=== PATIENT | female | born 1975 | race Two or more races ===

== ENCOUNTER 2024-04-28 22:40 | Inpatient (IN) | payer OTHER ==
[~2024-04-28] VITALS: Ht 144.8 cm; Wt 72.6 kg
[2024-04-28] MEDS ORDERED: 0.9 % SODIUM CHLORIDE 1,000 ML IV ONE (23:15)
[2024-04-28] MEDS ORDERED: FAMOtidine 10 MG/ML (4ML VIAL) IV ONE (23:15)
[2024-04-28] MEDS ORDERED: MORPHINE SULFATE 4 MG/ML VIAL IV ONE (23:15)
[2024-04-28] MEDS ORDERED: FAMOTIDINE/PF 20 MG/2 ML VIAL ONE (23:18)
[2024-04-29] MEDS ORDERED: METOCLOPRAMIDE HCL 5 MG/5 ML BLIST.PACK PO STA (00:25)
[2024-04-29] MEDS ORDERED: METOCLOPRAMIDE HCL 5 MG/ML VIAL IM STA (00:28)
[2024-04-29] MEDS ORDERED: METOCLOPRAMIDE HCL 5 MG/ML VIAL ONE (00:29)
[2024-04-29 00:37] LABS: HEMATOCRIT 41.5 % (36.0-45.00); HEMOGLOBIN 13.8 g/dL (12.0-15.00); MEAN CELL VOLUME 87.3 fL (80.00-100.00); MEAN CORPUSCULAR HGB CONC 33.2 g/dl (32.0-36.0); PLATELET COUNT 289 K/uL (150-450); RED BLOOD COUNT 4.76 M/uL (4.00-6.00); RED CELL DISTRIBUTION WIDTH 14.8 % (11.5-14.5)
[2024-04-29 00:48] LABS: INR 1.11; PARTIAL THROMBOPLASTIN TIME 27.6 SECONDS (22.0-34.0)
[2024-04-29 00:51] LABS: ALBUMIN 4.1 gm/dL (3.4-5.0); BILIRUBIN TOTAL 0.54 mg/dL (0.3-1.2); CALCIUM 11.5 mg/dL (8.5-10.1); CREATININE SERUM 1.12 mg/dL (0.55-1.02); GFR 52.14; GLOBULINA 5.5 G/DL (2.4-3.5); POTASSIUM 3.77 mEq/L (3.5-5.1); TOTAL PROTEIN 9.6 gm/dL (6.4-8.2)
[2024-04-29] MEDS ORDERED: LIDOCAINE HCL VISCOUS 20MG/ML BLIST 15ML MM ONE (04:38)
[2024-04-29] MEDS ORDERED: MORPHINE SULFATE 4 MG/ML VIAL IV STA (05:07)
[2024-04-29 05:36] LABS: URINE BILIRRUBIN Negative (NEGATIVE); URINE BLOOD Trace; URINE COLOR Yellow; URINE GLUCOSE Negative (NEGATIVE); URINE KETONE 15 (NEGATIVE); URINE LEUKOCYTE Trace; URINE NITRATE Negative; URINE UROBILINOGEN 0.2 E.U./dl
[2024-04-29 05:40] LABS: URINE CAST 1.94 uL (0.0-1.40); URINE EPITHELIAL CELLS 7.5 uL (0.0-38.8); URINE WBC 141.5 uL (0.0-23.2)
[2024-04-29 05:41] LABS: URINE BACTERIA > 9821.5 uL (0.0-1933); URINE PROTEIN 100 (NEGATIVE)
[2024-04-29 05:42] LABS: URINE APPEARANCE SL CLOUDY
[2024-04-29] MEDS ORDERED: MORPHINE SULFATE 4 MG/ML CARTRIDGE IV ONE (14:30)
[2024-04-29] MEDS ORDERED: METHYLPREDNISOLONE SOD SUCC 125 MG VIAL IV ONE (19:15)
[2024-04-29 20:49] LABS: HEMOGLOBIN 13.2 g/dL (12.0-15.00); MEAN CELL VOLUME 86.6 fL (80.00-100.00); MEAN CORPUSCULAR HEMOGLOBIN 28.6 pg (27.00-32.0); MEAN CORPUSCULAR HGB CONC 33.1 g/dl (32.0-36.0); PLATELET COUNT 303 K/uL (150-450); RED BLOOD COUNT 4.63 M/uL (4.00-6.00); RED CELL DISTRIBUTION WIDTH 14.5 % (11.5-14.5)
[2024-04-29] MEDS ORDERED: METHYLPREDNISOLONE SOD SUCC 125 MG VIAL ONE (21:06)
[2024-04-29 21:16] LABS: ALBUMIN 3.5 gm/dL (3.4-5.0); BILIRUBIN TOTAL 0.47 mg/dL (0.3-1.2); CALCIUM 10.7 mg/dL (8.5-10.1); CREATININE SERUM 0.91 mg/dL (0.55-1.02); GFR 66.26; GLOBULINA 4.3 G/DL (2.4-3.5); POTASSIUM 4.3 mEq/L (3.5-5.1); TOTAL PROTEIN 7.8 gm/dL (6.4-8.2)
[2024-04-29] MEDS ORDERED: PIPERACILLIN/TAZOBACTAM SODIUM 3.375 GM VIAL IV ONE ×2 (21:58→22:00)
[2024-04-29] MEDS ORDERED: METRONIDAZOLE/SODIUM CHLORIDE 100 ML IV SCH (21:59)
[2024-04-30] MEDS ORDERED: METHYLPREDNISOLONE SOD SUCC 40 MG VIAL ONE ×2 (05:37→12:26)
[2024-04-30 08:38] LABS: HEMATOCRIT 36.8 % (36.0-45.00); HEMOGLOBIN 12.1 g/dL (12.0-15.00); MEAN CELL VOLUME 87.3 fL (80.00-100.00); MEAN CORPUSCULAR HEMOGLOBIN 28.8 pg (27.00-32.0); MEAN CORPUSCULAR HGB CONC 32.9 g/dl (32.0-36.0); PLATELET COUNT 272 K/uL (150-450); RED BLOOD COUNT 4.21 M/uL (4.00-6.00); RED CELL DISTRIBUTION WIDTH 14.6 % (11.5-14.5)
[2024-04-30 09:01] LABS: ERYTHROCYTE SEDIMENTATION RATE 85 mm/hr
[2024-04-30 09:11] LABS: ALBUMIN 3.2 gm/dL (3.4-5.0); BILIRUBIN TOTAL 0.44 mg/dL (0.3-1.2); CALCIUM 10.5 mg/dL (8.5-10.1); CREATININE SERUM 0.94 mg/dL (0.55-1.02); GFR 63.83; GLOBULINA 4.6 G/DL (2.4-3.5); POTASSIUM 3.74 mEq/L (3.5-5.1); TOTAL PROTEIN 7.8 gm/dL (6.4-8.2)
[2024-04-30 09:26] LABS: INR 1.17; PARTIAL THROMBOPLASTIN TIME 25.6 SECONDS (22.0-34.0); PROTHROMBIN TIME 12.6 SECONDS (9.0-11.5)
[2024-04-30] MEDS ORDERED: METHYLPREDNISOLONE SOD SUCC 40 MG VIAL IV SCH ×2 (12:53)
[2024-04-30] MEDS ORDERED: DEXTROSE 5 %-0.45 % SOD CHLORD 1,000 ML IV SCH (13:00)
[2024-04-30] MEDS ORDERED: PIPERACILLIN/TAZOBACTAM SODIUM 3.375 GM in DEXTROSE 5 % IN WATER 100 ML IV SCH (14:00)
[2024-04-30] MEDS ORDERED: DIATRIZOATE MEGLUMINE, SODIUM 30 ML BOTTLE PO NR (14:45)
[2024-04-30 15:47] VITALS: BP 157/84; O2SAT 100
[2024-04-30] MEDS ORDERED: FAMOTIDINE/PF 20 MG in 0.9 % SODIUM CHLORIDE 100 ML IV SCH (17:00)
[2024-04-30] MEDS ORDERED: MORPHINE SULFATE 4 MG/ML VIAL IV PRN (17:45)
[2024-04-30 19:14] VITALS: BP 164/78
[2024-05-01 00:47] VITALS: BP 180/76; O2SAT 95
[2024-05-01 04:19] VITALS: BP 172/90; O2SAT 97
[2024-05-01] MEDS ORDERED: MORPHINE SULFATE 4 MG/ML VIAL IV PRN (06:27)
[2024-05-01] MEDS ORDERED: ENALAPRILAT DIHYDRATE 1.25 MG/ML VIAL IV PRN (06:30)
[2024-05-01 08:43] VITALS: BP 163/79
[2024-05-01] MEDS ORDERED: ENOXAPARIN SODIUM 40 MG/0.4 ML SYRINGE SUBCUTANEO SCH (09:00)
[2024-05-01] MEDS ORDERED: MORPHINE SULFATE 4 MG/ML CARTRIDGE IV PRN (10:30)
[2024-05-01 17:07] VITALS: BP 184/87
[2024-05-02 01:04] VITALS: BP 170/76
[2024-05-02 05:40] VITALS: BP 172/64
[2024-05-02 08:42] VITALS: BP 192/82
[2024-05-02] MEDS ORDERED: LOSARTAN POTASSIUM 25 MG TABLET PO SCH (12:00)
[2024-05-02 13:43] LABS: CALCIUM 9.9 mg/dL (8.5-10.1); CHOL HDL RATIO 2.8 (0-5.0); CREATININE SERUM 1.01 mg/dL (0.55-1.02); GFR 58.75; POTASSIUM 3.39 mEq/L (3.5-5.1)
[2024-05-02] MEDS ORDERED: METHYLPREDNISOLONE SOD SUCC 40 MG VIAL IV SCH (17:00)
[2024-05-02] MEDS ORDERED: AA 5 %/CALCIUM/LYTES/DEXT 20 % 2,000 ML CENTRAL SCH (17:00)
[2024-05-02 18:04] VITALS: BP 195/83
[2024-05-02] MEDS ORDERED: PANTOPRAZOLE SODIUM 40 MG/VIAL VIAL IV SCH (22:41)
[2024-05-03 01:39] VITALS: BP 160/75
[2024-05-03 05:34] VITALS: BP 160/73
[2024-05-03 08:43] LABS: CALCIUM 10.2 mg/dL (8.5-10.1); CREATININE SERUM 1.18 mg/dL (0.55-1.02); GFR 49.1; POTASSIUM 4.01 mEq/L (3.5-5.1)
[2024-05-03 08:53] VITALS: BP 192/83
[2024-05-03] MEDS ORDERED: hydrALAZINE HCL 20 MG VIAL IV SCH (14:49)
[2024-05-03 16:57] VITALS: BP 184/89
[2024-05-03 20:52] VITALS: BP 179/85
[2024-05-04] MEDS ORDERED: MORPHINE SULFATE 4 MG/ML CARTRIDGE IV PRN (00:30)
[2024-05-04 02:43] VITALS: BP 155/77; O2SAT 100
[2024-05-04 05:27] VITALS: BP 160/82; O2SAT 97
[2024-05-04 06:29] LABS: HEMATOCRIT 37.2 % (36.0-45.00); HEMOGLOBIN 12.2 g/dL (12.0-15.00); MEAN CELL VOLUME 86.7 fL (80.00-100.00); MEAN CORPUSCULAR HEMOGLOBIN 28.4 pg (27.00-32.0); MEAN CORPUSCULAR HGB CONC 32.8 g/dl (32.0-36.0); PLATELET COUNT 225 K/uL (150-450); RED BLOOD COUNT 4.29 M/uL (4.00-6.00); RED CELL DISTRIBUTION WIDTH 14.8 % (11.5-14.5)
[2024-05-04 07:03] LABS: CALCIUM 9.8 mg/dL (8.5-10.1); CREATININE SERUM 1.09 mg/dL (0.55-1.02); GFR 53.8; POTASSIUM 3.55 mEq/L (3.5-5.1)
[2024-05-04 09:11] VITALS: BP 117/72
[2024-05-04 17:31] LABS: PH,URINE 6.5 (5.0-8.0); URINE APPEARANCE Clear; URINE BILIRRUBIN Negative (NEGATIVE); URINE BLOOD Negative; URINE COLOR Yellow; URINE KETONE Negative (NEGATIVE); URINE LEUKOCYTE Trace; URINE NITRATE Negative; URINE UROBILINOGEN 0.2 E.U./dl
[2024-05-04 17:34] LABS: URINE BACTERIA 108.2 uL (0.0-1933); URINE EPITHELIAL CELLS 57.3 uL (0.0-38.8); URINE RBC 2.7 uL (0.0-20.8); URINE WBC 25.9 uL (0.0-23.2)
[2024-05-04 17:42] LABS: URINE GLUCOSE 100 MG/DL (NEGATIVE); URINE PROTEIN 100 (NEGATIVE)
[2024-05-04 18:28] VITALS: BP 190/80
[2024-05-05 01:13] VITALS: BP 141/80; O2SAT 98
[2024-05-05 09:42] VITALS: BP 160/90
[2024-05-05 17:50] VITALS: BP 154/77
[2024-05-06 00:29] VITALS: BP 168/81
[2024-05-06 04:53] LABS: HEMATOCRIT 39.6 % (36.0-45.00); HEMOGLOBIN 12.6 g/dL (12.0-15.00); MEAN CELL VOLUME 88.6 fL (80.00-100.00); MEAN CORPUSCULAR HEMOGLOBIN 28.3 pg (27.00-32.0); MEAN CORPUSCULAR HGB CONC 31.9 g/dl (32.0-36.0); PLATELET COUNT 214 K/uL (150-450); RED BLOOD COUNT 4.47 M/uL (4.00-6.00); RED CELL DISTRIBUTION WIDTH 15.3 % (11.5-14.5)
[2024-05-06 05:15] LABS: CREATININE SERUM 1.03 mg/dL (0.55-1.02); GFR 57.44; POTASSIUM 4.63 mEq/L (3.5-5.1)
[2024-05-06 09:11] VITALS: BP 154/75
[2024-05-06] MEDS ORDERED: SODIUM CHLORIDE 0.45 % 1,000 ML IV SCH (11:00)
[2024-05-06 16:50] VITALS: BP 142/76; O2SAT 99
[2024-05-07 02:16] VITALS: BP 128/70
[2024-05-07 05:48] VITALS: BP 146/71
[2024-05-07 07:42] LABS: HEMATOCRIT 37.6 % (36.0-45.00); HEMOGLOBIN 12.1 g/dL (12.0-15.00); MEAN CELL VOLUME 88.5 fL (80.00-100.00); MEAN CORPUSCULAR HEMOGLOBIN 28.4 pg (27.00-32.0); MEAN CORPUSCULAR HGB CONC 32.1 g/dl (32.0-36.0); PLATELET COUNT 242 K/uL (150-450); RED BLOOD COUNT 4.25 M/uL (4.00-6.00); RED CELL DISTRIBUTION WIDTH 14.8 % (11.5-14.5)
[2024-05-07 09:15] VITALS: BP 135/75; O2SAT 96
[2024-05-07] MEDS ORDERED: DEXTROSE 5 %-0.45 % SOD CHLORD 1,000 ML IV SCH (09:30)
[2024-05-07 17:50] VITALS: BP 160/83; O2SAT 97
[2024-05-07 21:30] VITALS: BP 160/83; O2SAT 100
[2024-05-08 03:04] VITALS: BP 127/65
[2024-05-08 08:00] VITALS: BP 127/78; O2SAT 97
[2024-05-08] MEDS ORDERED: DIATRIZOATE MEGLUMINE, SODIUM 30 ML BOTTLE PO NR (12:45)
[2024-05-08 17:56] VITALS: BP 137/84; O2SAT 97
[2024-05-08 21:55] VITALS: BP 130/82; O2SAT 97
[2024-05-09 01:33] VITALS: BP 150/84
[2024-05-09 04:55] VITALS: BP 174/89
[2024-05-09 08:38] VITALS: BP 130/78
[2024-05-09] MEDS ORDERED: MORPHINE SULFATE 4 MG/ML VIAL IV PRN (10:45)
[2024-05-09] MEDS ORDERED: ACETAMINOPHEN 500 MG GEL..CAP PO SCH (12:00)
[2024-05-09] MEDS ORDERED: ONDANSETRON HCL 2 MG/ML VIAL IV SCH (13:00)
[2024-05-09] MEDS ORDERED: GABAPENTIN 300 MG CAPSULE PO SCH (13:00)
[2024-05-09] MEDS ORDERED: TRAMADOL HCL 50 MG TABLET PO PRN (13:45)
[2024-05-09] MEDS ORDERED: AA 5 %/CALCIUM/LYTES/DEXT 20 % 2,000 ML CENTRAL SCH (17:00)
[2024-05-09 17:26] VITALS: BP 151/77
[2024-05-10 01:53] VITALS: BP 149/83
[2024-05-10 08:00] VITALS: BP 128/78
[2024-05-10 13:55] LABS: HEMATOCRIT 39.1 % (36.0-45.00); HEMOGLOBIN 12.9 g/dL (12.0-15.00); MEAN CELL VOLUME 86.8 fL (80.00-100.00); MEAN CORPUSCULAR HEMOGLOBIN 28.7 pg (27.00-32.0); MEAN CORPUSCULAR HGB CONC 33.1 g/dl (32.0-36.0); PLATELET COUNT 208 K/uL (150-450); RED BLOOD COUNT 4.51 M/uL (4.00-6.00); RED CELL DISTRIBUTION WIDTH 14.6 % (11.5-14.5)
[2024-05-10 14:16] LABS: ALBUMIN 3.1 gm/dL (3.4-5.0); CALCIUM 10.7 mg/dL (8.5-10.1); CREATININE SERUM 0.97 mg/dL (0.55-1.02); GFR 61.56; MAGNESIUM 2.4 mg/dL (1.8-2.4); PHOSPHOROUS 2.6 mg/dL (2.5-4.9); POTASSIUM 4.25 mEq/L (3.5-5.1)
[2024-05-10 17:58] VITALS: BP 133/71
[2024-05-11 01:32] VITALS: BP 116/71
[2024-05-11 08:56] VITALS: BP 127/63
[2024-05-11 17:13] VITALS: BP 120/62
== END 2024-05-11 17:39 | disposition home or self-care (01) | DRG 386 ==
LOC: ER 22:41 → MEDI 04-30 13:24
PROVIDERS: General Practice; Internal Medicine; Student in an Organized Health Care Education/Training Program; ADMIT Internal Medicine; ATTEND Internal Medicine
PROC: BW21ZZZ Computerized Tomography (CT Scan) of Abdomen and Pelvis (ICD-10-PCS; 2024-04-29)
PROC: BW21ZZZ Computerized Tomography (CT Scan) of Abdomen and Pelvis (ICD-10-PCS; 2024-04-30)
PROC: 0D9670Z Drainage of Stomach with Drainage Device, Via Natural or Artificial Opening (ICD-10-PCS; principal; 2024-05-01)
PROC: 02HV33Z Insertion of Infusion Device into Superior Vena Cava, Percutaneous Approach (ICD-10-PCS; 2024-05-02)
PROC: BW21YZZ Computerized Tomography (CT Scan) of Abdomen and Pelvis using Other Contrast (ICD-10-PCS; 2024-05-08)
DX: K50.90 Crohn's disease, unspecified, without complications (principal); K56.600 Partial intestinal obstruction, unspecified as to cause